=== PATIENT | female | born 1955 | race Caucasian/White ===

== ENCOUNTER 2021-07-06 11:07 | Day surgery (SDC) | payer MEDICARE ==
[~2021-07-06] VITALS: Ht 165.1 cm; Wt 76.1 kg
[~2021-07-06 11:07] MED LIST: ASPI81EC PO; CHOL10002 PO; CONEST.9 PO; HYDCHL25 PO; KETO15TC TP; LISI20 PO; LORA10ER PO; PRAV20 PO; RXCLIN PO
== END 2021-07-06 13:20 | disposition home or self-care (01) ==
LOC: ORSCSDS 11:07
PROVIDERS: Internal Medicine Gastroenterology
PROC: 0DJD8ZZ Inspection of Lower Intestinal Tract, Via Natural or Artificial Opening Endoscopic (ICD-10-PCS; principal; 2021-07-06 12:30)
DX: Z12.11 Encounter for screening for malignant neoplasm of colon (principal); Z86.010 Personal history of colon polyps; K57.30 Diverticulosis of large intestine without perforation or abscess without bleeding; E11.9 Type 2 diabetes mellitus without complications; Z79.84 Long term (current) use of oral hypoglycemic drugs; Z79.899 Other long term (current) drug therapy
CPT/HCPCS: 82947; J2704; J7120